=== PATIENT | male | born 1995 | race Two or more races ===

== ENCOUNTER 2017-05-25 20:24 | Emergency (ER) | payer MEDICAID ==
[~2017-05-25] VITALS: Ht 167.6 cm; Wt 68.0 kg
[2017-05-25 20:33] VITALS: BP 127/80
[2017-05-26] MEDS ORDERED: BACITRACIN-POLYMYXIN B TOPICAL OINT UD TOP ONE
[2017-05-26] MEDS ORDERED: LIDOCAINE 1% HCL (LOCAL ANESTH.) INJ 20ML MDV IN ONE
[2017-05-26] MEDS ORDERED: LIDOCAINE HCL 2 %PF INJ 10ML AMP IJ ONE (00:15)
[2017-05-26] MEDS ORDERED: HYDROcodone-ACET 10/325MG TAB PO ONE ×2 (00:15→01:15)
[2017-05-26] MEDS ORDERED: TETANUS-DIPTH-ACEL PERTUSSIS 0.5ML SYRG IM ONE (01:00)
[2017-05-26] MEDS ORDERED: BACITRACIN TOP OINT 1 UD PKG TOP ONE (01:00)
== END 2017-05-26 01:32 | disposition home or self-care (01) ==
LOC: ER 20:24 → EDBD 20:24 → EDUNIT# 20:24 → ER 05-26 01:32
DX: S61.512A Laceration without foreign body of left wrist, initial encounter (principal); X78.9XXA Intentional self-harm by unspecified sharp object, initial encounter; Y93.89 Activity, other specified; Y92.89 Other specified places as the place of occurrence of the external cause; Y99.8 Other external cause status
CPT/HCPCS: 12002; 90471; 90715

== ENCOUNTER 2025-05-18 04:19 | Emergency (ER) | payer SELFPAY ==
[~2025-05-18] VITALS: Ht 167.6 cm; Wt 77.0 kg
[2025-05-18 04:32] VITALS: BP 165/106; PULSE 140; RESP 20; TEMP 98.2; O2SAT 98
--- NOTE | 2025-05-18 04:58 | ED.PDOC ---
History of Present Illness HPI Comments 29-year-old male is brought in by ambulance for chief complaint of altered level consciousness following suspected drug overdose. Per EMS personnel report, family called after finding the patient is vehicle unresponsive. Prior to EMS personnel arrival on scene, family administered 4 mg of intranasal Narcan to the patient with positive response. Patient denied on any history of recent opiate use and endorses only using methamphetamines. Patient's vehicle was found with crystal meth. Upon arrival to ED, patient is A& Ox4, denies having any symptoms, currently, expresses to leave the ED and go home against medical advice. Chief Complaint: Overdose Time Seen by MD: 04:30 Primary Care Provider: DR. 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 Past Medical History PAST MEDICAL HISTORY: Kidney Stones Surgical History: Denies all surgeries Social History Smoker: Non-Smoker Alcohol: Denies ETOH Use Drugs: Methamphetamine Lives In: Home All Other Systems: Reviewed and Negative (Comprehensive review of systems are negative unless otherwise stated in HPI) Physical Exam General Appearance: No Apparent Distress, Normal HEENT: Normal ENT Inspection, Pharynx Normal, TMs Normal Neck: Full Range of Motion, Non-Tender, Normal, Normal Inspection Respiratory: Chest Non-Tender, Lungs Clear, No Accessory Muscle Use, No Respiratory Distress, Normal Breath Sounds Cardiovascular: No Edema, No JVD, No Murmur, No Gallop, Normal Peripheral Pulses, Regular Rate/Rhythm Breast Exam: Deferred Gastrointestinal: No Organomegaly, Non Tender, No Pulsatile Mass, Normal Bowel Sounds, Soft Genitalia: Deferred Pelvic: Deferred Rectal: Deferred Extremities: No calf tenderness, Normal capillary refill, Normal inspection, Normal range of motion, Non-tender, No pedal edema Musculoskeletal : Apperance: Normal Neurologic: Alert, analytical statistician II-XII nml as Tested, No Motor Deficits, Normal Affect, Normal Mood, No Sensory Deficits Cerebellar Function: Normal Reflexes: Normal Skin: Dry, Normal Color, Warm Lymphatic: No Adenopathy Was a procedure done? Was a procedure done?: No Differential Dx Considerations may include: Opiate overdose, substance abuse, substance dependency, encephalopathy, among others X-Ray, Labs, Meds, VS Vital Signs Date Time Temp Pulse Resp B/P (MAP) Pulse Ox O2 Delivery O2 Flow Rate FiO2 05/18/25 04:32 98.2 140 20 165/106 98 98.2 X-Ray, Labs, Meds, VS Comment Patient presenting with drug overdose, likely secondary to opiates as patient had complete resolution of symptoms with intranasal Narcan. Vital signs stable and exam unremarkable. Patient refusing oral testing further observation at this time. Discussed with patient at length risks of leaving, and he expressed understanding is the person to leave. Patient signed out AMA. Time of 1ST Reevaluation: 04:45 Reevaluation 1ST: Unchanged Patient Education/Counseling: Diagnosis, Treatment Family Education/Counseling: No Family Present SEPSIS Sepsis Screen Date sepsis recognized/suspect: May 18, 2025 Time Sepsis recognized/suspect: 434 Recent Procedure: No On Antibiotic Therapy: No Respiratory Rate >20: No Heart Rate >90: Yes Temp<36 C (96.8 F) or >38.3 C: No SBP <90 or MAP <65 mmHG: No New Acute Mental Status Change: No Is the patient on CPAP, BIPAP,: No Vital Signs Date Time Temp Pulse Resp B/P (MAP) Pulse Ox O2 Delivery O2 Flow Rate FiO2 05/18/25 04:32 98.2 140 20 165/106 98 98.2 Departure 1 Departure Time of Disposition: 05:00 (Patient signed out AMA) Impression: Primary Impression: Metabolic encephalopathy Additional Impression: Drug overdose Disposition: LEFT AGAINST MEDICAL ADVICE Condition: Stable Discharged With: Self Critical Care Note Critical Care Time?: No Stability Stability form required: No Heart Score Heart Score: Heart Score Response (Comments) Value History N/A 0 EKG N/A 0 Age N/A 0 Risk Factors N/A 0 Troponin N/A 0 Total 0 I personally scribed for JACOB ANNE MD ([email or web address]) on 05/18/25 at 04:58. Electronically submitted by Juan J Garcia ([email or web address]). JACOB ANNE MD May 18, 2025 04:58
== END 2025-05-18 04:38 | disposition left against medical advice (07) ==
LOC: EDBD 04:19 → ER 04:19
DX: T50.901A Poisoning by unspecified drugs, medicaments and biological substances, accidental (unintentional), initial encounter (principal); G93.41 Metabolic encephalopathy; F19.90 Other psychoactive substance use, unspecified, uncomplicated; Z87.442 Personal history of urinary calculi; Y92.89 Other specified places as the place of occurrence of the external cause